=== PATIENT | male | born 1985 | race Hispanic/Latino ===

== ENCOUNTER 2016-11-18 08:12 | Emergency (ER) | payer OTHER ==
[2016-11-18 08:16] VITALS: BP 119/67; PULSE 87; TEMP 99; O2SAT 97; BMI 28.1
[2016-11-18] MEDS ORDERED: Sodium Chloride 0.9% 1,000 ML IV STA ×2 (08:26→11:17)
--- NOTE | 2016-11-18 08:35 | ED PDOC ---
HPI: General Adult Time Seen by Provider: 11/18/16 08:22 Chief Complaint (Nursing): GI Problem Chief Complaint (Provider): GI Problem History Per: Patient History/Exam Limitations: no limitations Onset/Duration Of Symptoms: Days (x1 day) Current Symptoms Are (Timing): Still Present Additional Complaint(s): 31 y/o male presents to the emergency department with a complaint of nausea, vomiting, and diarrhea since yesterday, 11/17/2016. Associated with body aches and chills. denies abdominal pain, bloody stool, dysuria, or frequency of urination. PMD: Dr. Ameya Anderson MD Past Medical History Reviewed: Historical Data, Nursing Documentation, Vital Signs Vital Signs: Last Vital Signs Temp 99 F 11/18/16 08:15 Pulse 87 11/18/16 08:15 Resp BP 119/67 11/18/16 08:15 Pulse Ox 97 11/18/16 08:38 - Medical History PMH: Cardia Arrhythmia (WPW syndrome w ablation) - Surgical History Surgical History: No Surg Hx - Family History Family History: States: Unknown Family Hx - Social History Current smoker - smoking cessation education provided: No Alcohol: Social Drugs: Denies - Home Medications Home Medications: Ambulatory Orders Medication Instructions Recorded Ondansetron [Zofran] 4 mg PO Q8H #10 tab 11/18/16 - Allergies Allergies/Adverse Reactions: Allergies Allergy/AdvReac Type Severity Reaction Status Date / Time No Known Allergies Allergy Verified 11/18/16 08:23 Review of Systems ROS Statement: Except As Marked, All Systems Reviewed And Found Negative Constitutional: Positive for: Chills, Other (body aches) Gastrointestinal: Positive for: Nausea, Vomiting, Diarrhea. Negative for: Abdominal Pain, Hematochezia Genitourinary Male: Negative for: Dysuria, Frequency Physical Exam - Reviewed Nursing Documentation Reviewed: Yes Vital Signs Reviewed: Yes - Physical Exam Appears: Positive for: Non-toxic, No Acute Distress Head Exam: Positive for: ATRAUMATIC, NORMOCEPHALIC Skin: Positive for: Normal Color, Warm, Dry ENT: Positive for: Normal ENT Inspection, Other (Dry mucous membranes). Negative for: Pharyngeal Erythema Neck: Positive for: Normal, Supple Cardiovascular/Chest: Positive for: Regular Rate, Rhythm. Negative for: Murmur Respiratory: Positive for: Normal Breath Sounds. Negative for: Accessory Muscle Use, Respiratory Distress Gastrointestinal/Abdominal: Positive for: Normal Exam, Soft. Negative for: Tenderness Back: Positive for: Normal Inspection. Negative for: L CVA Tenderness, R CVA Tenderness Neurologic/Psych: Positive for: Alert, Oriented - Laboratory Results Result Diagrams: 11/18/16 08:51 11/18/16 08:51 - ECG O2 Sat by Pulse Oximetry: 97 (RA) Pulse Ox Interpretation: Normal Medical Decision Making Medical Decision Making: Time: 8:22 Initial plan: --COMP Metabolic Panel --ED Urine Dipstick (POC) Stat --CBC w/ differential --Pepcid 20 mg IVP --Sodium Chloride 1,000 ml IV 250 mls/hr --Zofran INJ 4 mg IVP --Revaluation Scribe Attestation: Documented by Slime Dobbs, acting as a scribe for Endy Navarrete MD. Provider Scribe Attestation: All medical record entries made by the Scribe were at my direction and personally dictated by me. I have reviewed the chart and agree that the record accurately reflects my personal performance of the history, physical exam, medical decision making, and the department course for this patient. I have also personally directed, reviewed, and agree with the discharge instructions and disposition. Disposition - Clinical Impression Clinical Impression: Gastroenteritis - Patient ED Disposition Is Patient to be Admitted: No Counseled Patient/Family Regarding: Studies Performed, Diagnosis, Need For Followup, Rx Given - Disposition Referrals: [facility] [Outside] Disposition: Routine/Home Disposition Time: 12:28 Condition: FAIR Prescriptions: Ondansetron [Zofran] 4 mg PO Q8H #10 tab Instructions: Gastroenteritis (ED)
[2016-11-18 08:56] LABS: BASO % 0.1 % (0.0-2.0); EOS % 0.3 % (0.0-4.0); HEMATOCRIT 44.6 % (35.0-51.0); LYMPH # 0.3 K/uL (1.0-4.3); LYMPH % 3.2 % (20.0-40.0); MEAN CELL VOLUME 87.4 fl (80.0-94.0); MEAN CORPUSCULAR HEMOGLOBIN 30.8 pg (27.0-31.0); MEAN CORPUSCULAR HGB CONC 35.2 g/dL (33.0-37.0); MEAN PLATELET VOLUME 8.8 fl (7.2-11.7); MONO # 0.5 K/uL (0.0-0.8); MONO % 6.2 % (0.0-10.0); NEUT # 7.6 K/uL (1.8-7.0); NEUT % 90.2 % (50.0-75.0); PLATELET COUNT 158 K/uL (130-400); RED CELL DISTRIBUTION WIDTH 12.9 % (11.5-14.5); WHITE BLOOD COUNT 8.4 K/uL (4.8-10.8)
[2016-11-18 09:34] LABS: ALB/GLOB RATIO 1.2 (1.0-2.1); ALKALINE PHOSPHATASE 61 U/L (38-126); ALT/SGPT 40 U/L (21-72); AST/SGOT 36 U/L (17-59); BILIRUBIN,TOTAL 0.9 mg/dl (0.2-1.3); BLOOD UREA NITROGEN 19 mg/dl (9-20); CALCIUM 9.4 mg/dL (8.4-10.2); CARBON DIOXIDE 28 mmol/L (22-30); CHLORIDE 99 mmol/L (98-107); GFR AFRICAN-AMERICAN > 60; GLUCOSE,RANDOM 131 mg/dL (75-110); POTASSIUM 3.8 MMOL/L (3.6-5.0); SODIUM 135 mmol/l (132-148); TOTAL PROTEIN 7.5 G/DL (6.3-8.2)
[2016-11-18 12:55] LABS: NEUTROPHIL 86 % (42-75); REACTIVE LYMPHOCYTES 2 % (0-0); TOTAL CELLS COUNTED 100
== END 2016-11-18 12:47 | disposition home or self-care (01) ==
LOC: H.ER 08:12
DX: K52.9 Noninfective gastroenteritis and colitis, unspecified (principal); R19.7 Diarrhea, unspecified; R11.2 Nausea with vomiting, unspecified; I45.6 Pre-excitation syndrome

== ENCOUNTER 2017-12-22 22:45 | Emergency (ER) | payer OTHER ==
[2017-12-22 22:46] VITALS: BMI 28.1
[2017-12-22 22:52] VITALS: BP 141/92; PULSE 95; RESP 16; TEMP 98.3; O2SAT 98
--- NOTE | 2017-12-22 23:32 | ED PDOC ---
Lower Extremity Pain/Injury Time Seen by Provider: 12/22/17 22:54 Chief Complaint (Nursing): Lower Extremity Problem/Injury History Per: Patient Additional Complaint(s): Pt. states earlier today at work after running he developed pain in his R foot area. Denies numbness, tingling, twisting injury, ankle pain. Past Medical History Reviewed: Historical Data, Nursing Documentation, Vital Signs Vital Signs: Last Vital Signs Temp 98.3 F 12/22/17 22:52 Pulse 95 H 12/22/17 22:52 Resp 16 12/22/17 22:52 BP 141/92 H 12/22/17 22:52 Pulse Ox 98 12/22/17 22:52 - Medical History PMH: Cardia Arrhythmia (WPW syndrome w ablation) - Family History Family History: States: No Known Family Hx - Home Medications Home Medications: Ambulatory Orders Medication Instructions Recorded Ondansetron [Zofran] 4 mg PO Q8H #10 tab 11/18/16 - Allergies Allergies/Adverse Reactions: Allergies Allergy/AdvReac Type Severity Reaction Status Date / Time No Known Allergies Allergy Verified 12/22/17 22:50 Review of Systems ROS Statement: Except As Marked, All Systems Reviewed And Found Negative Musculoskeletal: Positive for: Foot Pain Physical Exam - Physical Exam Appears: Positive for: Well, Non-toxic, No Acute Distress Skin: Positive for: Normal Color, Warm. Negative for: Rash Eye Exam: Positive for: Normal appearance Pulses-Dorsalis Pedis (L): 2+ Pulses-Dorsalis Pedis (R): 2+ Extremity: Positive for: Capillary Refill (< 2 seconds of R foot), Other (RIGHT FOOT: no tenderness, swelling, deformity, or break in skin integrity) - ECG O2 Sat by Pulse Oximetry: 98 - Radiology X-Ray: Interpreted by Me (R foot x-ray) X-Ray Interpretation: No Acute Disease Disposition - Clinical Impression Clinical Impression: Foot pain - Patient ED Disposition Is Patient to be Admitted: No - Disposition Referrals: [facility]] Ameya Anderson MD [Primary Care Provider] - Disposition: Routine/Home Disposition Time: 00:20 Condition: STABLE Instructions: Metatarsalgia Forms: [employer] (Martiniquais), [facility] ED School/Work Excuse Print Language: TURKISH
--- NOTE | 2017-12-23 08:53 | RAD ---
PROCEDURE: Right Foot Radiographs. HISTORY: pain COMPARISON: Right foot radiographs dated 05/29/2011. FINDINGS: BONES: No acute fracture. Sequelae of prior trauma in the proximal 5th metatarsal. JOINTS: Unremarkable. SOFT TISSUES: Normal. OTHER FINDINGS: Inferior plantar calcaneal spur. IMPRESSION: No demonstrated acute fracture or dislocation.
== END 2017-12-23 00:57 | disposition home or self-care (01) ==
LOC: H.ER 22:45
DX: M79.671 Pain in right foot (principal)